=== PATIENT | male | born 1970 | race Caucasian/White ===

== ENCOUNTER 2020-10-25 14:19 | Emergency (ER) | payer OTHER, SELFPAY ==
[2020-10-25] VITALS (11 sets, daily range): BP systolic 151–176; BP diastolic 95–114; PULSE 95–120; RESP 16–20; TEMP 36.3–37.6; O2SAT 96–163; BMI 27.6
--- NOTE | 2020-10-25 14:32 | CT_ITS ---
INDICATION: abdominal pain EXAMINATION: CT Abdomen And Pelvis W/ Contrast Injection TECHNIQUE: Helically acquired images were obtained of the abdomen and pelvis after IV contrast. A radiation dose optimization technique was used for this scan. IV Contrast dosage and agent: 300 cc ISOVUE 300 Oral contrast: None. COMPARISON: None. FINDINGS: Visualized lung bases: Unremarkable Liver: The liver is markedly heterogeneous. There is a nodular contour. There is an enhancing 1.2 cm mass in segment 1 of the liver (image 30, series 2) and another enhancing 1.2 cm mass in the dome of the liver (image 19, series 2). Gallbladder: Unremarkable Spleen: The spleen is enlarged measuring 15.4 cm in craniocaudal dimension. Pancreas: Unremarkable Adrenal Glands: Unremarkable Kidneys: Multiple bilateral nonobstructing renal calculi, largest on the right measuring 6 mm in the inferior pole, while the largest in the left measures 5 mm in the inferior pole. GI Tract: The appendix is normal. Vasculature: Mild scattered aortoiliac atherosclerotic calcifications. Gastroesophageal varices. Lymphadenopathy: None Peritoneum: Large volume ascites. Bladder: Unremarkable Reproductive organs: Prostatic calcifications. Bones/Soft tissues: No suspicious osseous or soft tissue lesions CT/Abdomen/Pelvis W IV Cont ONLY IMPRESSION: Cirrhotic liver with evidence of portal hypertension including gastroesophageal varices, splenomegaly and large volume ascites. There are two 1.2 cm enhancing liver masses as described above. These are concerning for possible hepatocellular carcinoma. Recommend multiphase CT or MR abdomen liver mass protocol for further evaluation. Electronically Signed: Joaquin Gregory MD at 16:41 EDT Tel , Service support ,
--- NOTE | 2020-10-25 14:35 | ED.DCSUM_ITS ---
- ER Visit Summary Date of Service: 10/25/20 Chief Complaint: [Abdominal pain] History of Present Illness: The patient is a 49 M [presents to the emergency department complaint of abdominal pain that started 3 weeks ago on the right side and he has had left-sided abdominal pain for about 6 months. Patient was seen by primary care today and referred to the ER. Patient noticed a discoloration to his skin 2 weeks ago. Patient has history of hepatitis C he believes but he is not sure. He has been able to eat and drink. He denies any nausea or vomiting. Denies any fever. He denies any blood in the stool or black tarry stools. He denies urinary symptoms. Patient has history of alcohol abuse and continues to drink from time to time.] Physical Examination: HEENT-PERRLA, EOMI. Cranial nerves II through XII grossly intact. TMs clear. Mucous membranes moist. No adenopathy. Patient has scleral icterus. Cardiovascular-regular rate and rhythm without murmur or ectopy Lungs-clear to auscultation, chest wall stable without crepitus or subcu emphysema Abdomen-normoactive bowel sounds. Patient's abdomen is distended and protuberant. Minimal abdominal discomfort on exam. There is no rebound, rigidity, or peritoneal signs. Extremities-intact ?4, normal range of motion, normal pulses, atraumatic [. Patient does have jaundice noted to his skin diffusely.] Test Results: [CBC with differential showed a white count 6.8, hemoglobin 13, hematocrit 39, plates 122. Chemistries unremarkable. BUN was 6 and creatinine 1.11. LFTs showed a total bilirubin of 20 and a direct bilirubin of 12.6. Alk phos was 159, ALT 36, AST 169. Urinalysis unremarkable. Lactate was elevated 3.0. GGT was 327. CT scan of the abdomen and pelvis with IV contrast showed cirrhotic liver with evidence of portal hypertension including gastroesophageal varices splenomegaly and large volume ascites. There are two 1.2 cm enhancing liver masses that are concerning for possible hepatocellular carcinoma. Gallbladder ultrasound obtained showed no evidence of gallstones and no evidence of cholecystitis. Patient's gallbladder wall measured 5.8 mm and was thought to be due to a contracted gallbladder and the fact the patient had cirrhosis. Patient's common bile duct was 2.8 mm.] Emergency Department Course and Treatment: [IV line established on arrival. Case was discussed with hospitalist who recommended transfer to tertiary care center. I discussed case with [facility] physician Dr. Flynn who accepted transfer of patient to their facility.] Treatment Plan: [Transfer to [facility] for definitive care] Disposition: [Transfer] Impression: [Liver cirrhosis Hyperbilirubinemia Ascites Alcohol abuse Liver masses-suspicious for hepatocellular carcinoma] This note was generated with [employer] dictation software. It may contain incorrect words, spelling, and punctuation that were not noted in review of the chart prior to signing ED Disposition - Plan for ED Patient: Referrals: Willy Colunga DO [COURTESY STAFF PHYSICIAN] -
[2020-10-25] MEDS: 0.9% Normal Saline 1,000 ML 125 ML IV ×2 (14:51→23:52)
[2020-10-25 14:57] LABS: Absolute Lymphocyte Count 0.77 X10^3/uL (0.83-4.51); Absolute Neutrophil Count 4.9 X10^3/uL (2.0-7.7); Basophil# 0.08 X10^3/uL; Basophil% 1.2 % (0-1); Eosinophil# 0.09 X10^3/uL; Eosinophils% 1.3 % (0-5); Hematocrit 38.8 % (40-54); Hemoglobin 13.3 g/dL (13.0-16.5); Lymphocyte # 0.77 X10^3/ul (4.0); Lymphocyte % 11.3 % (19-41); Mean Corp Hgb Conc 34.3 g/dL (32-36); Mean Corpuscular Hgb 38.7 pg (27.0-32.0); Mean Corpuscular Volume 112.8 fL (80-94); Mean Platelet Vol. 10.6 fl (6.2-12.0); Monocyte# 0.93 X10^3/uL; Monocyte% 13.6 % (0-10); NRBC Flagged by Analyzer 0 % (0-5); Neutrophil # 4.93 X10^3/uL (2.7-7.7); Neutrophil % 72.2 % (47-70); Platelet Count 122 K/mm3 (150-450); RBC Distribution Width CV 15.7 % (11.6-14.6); RBC Distribution Width SD 64.5 fl (35.1-43.9); Red Blood Count 3.44 M/mm3 (4.6-6.2); White Blood Count 6.8 K/mm3 (4.4-11.0)
[2020-10-25 15:23] LABS: ALB/GLOB Ratio 0.4 RATIO (0.9-2.4); AST(SGOT) 169 U/L (15-37); Alanine Aminotransfer ALT/SGPT 36 U/L (16-61); Albumin, Serum 2.2 g/dL (3.2-5.0); Alkaline Phosphatase 159 U/L (45-117); Anion Gap 10 (5-15); BUN 6 mg/dL (7-18); BUN/Creat Ratio 5.4 RATIO (10-20); Calcium,Total 8.3 mg/dL (8.5-10.1); Chloride 100 mmol/L (98-107); Creatinine, Serum 1.11 mg/dL (0.70-1.30); EST Glomerular Filtration Rate 75 mL/min (>60); Est Glom Filt Rate - Afr Amer 91 mL/min (>60); Estimated Creatinine Clearance 91.98 ml/min; Globulin 5.4 g/dL (2.2-4.2); Glucose 186 mg/dL (74-106); Lipase 436 U/L (73-393); Potassium 3.6 mmol/L (3.5-5.1); Protein, Total 7.6 g/dL (6.4-8.2); Sodium Level 134 mmol/L (136-145)
[2020-10-25 15:24] LABS: Lactic Acid 3.2 mmol/L (0.4-1.9)
--- NOTE | 2020-10-25 15:59 | US_ITS ---
STUDY: ABDOMINAL ULTRASOUND - RIGHT UPPER QUADRANT REASON FOR VISIT: Male, 49 years old. Abdominal pain. TECHNIQUE: Ultrasound evaluation of the right upper quadrant was performed with real-time and static figueredo-scale imaging. TECHNICAL QUALITY: Examination limited due to a combination of factors including patient condition and bowel gas. COMPARISON: CT of the abdomen and pelvis, 10/25/2020. FINDINGS: Liver: The liver measures 17.5 cm. The renal parenchyma is heterogenous and increased in echogenicity. There is markedly nodular surface pattern with prominent left lateral lobe suggesting cirrhosis. The bile ducts are within normal limits. There is hepatic color flow. The direction of portal flow is hepatopetal. There is no demonstrated mass lesion. Gallbladder: The gallbladder is contracted. (The patient is nothing by mouth for only 3 hours). The gallbladder wall measures 5.8 mm. There is a negative sonographic Pantoja''s sign. There is no pericholecystic fluid. There are no gallstones. Common Bile Duct (C.B.D.): The common bile duct measures 2.8 mm. Pancreas: There is nonvisualization of the pancreas. Right Kidney: Normal size of the right kidney. The right kidney measures 11.9 cm. Normal renal cortex. The right cortex measures 1.6 cm. There is no demonstrated renal mass or cyst. There are multiple echogenic foci consistent with small renal calculi noted on the CT. There is no right hydronephrosis. There is diffuse ascites. US/Gallbladder IMPRESSION: 1. Contracted thick-walled gallbladder. There is no stones or secondary evidence of acute cholecystitis. This is thought to be due to the patient being nothing by mouth as well as the presence of cirrhosis and ascites. 2. Cirrhotic appearing liver without focal mass. 3. Ascites. 4. Nonvisualization of the pancreas. 5. Normal right kidney. Electronically Signed: Fabrice Florez DO at 17:14 EDT Tel [phone], Service support ,
[2020-10-25 16:27] LABS: Bilirubin, Direct 12.64 mg/dL (0.00-0.30); GGTP 327 U/L (15-85)
[2020-10-25 17:00] LABS: Mucous, Urine 0 SEEN /hpf (<or=2+)
[2020-10-25 17:03] LABS: Color, Urine Amber (Yellow); Glucose, Dipstick Normal (Normal); Ketone-Dipstick Negative (Negative); Leukocyte Esterase-Dipstick 100 /ul (Negative); Nitrite-Dipstick Negative (Negative); Occult Blood-Urine 150 /ul (Negative); Protein-Dipstick 15 mg/dl (Negative); Urine Bilirubin Dipstick 6 mg/dL (Negative); Urine Clarity Sl. Cloudy (Clear); Urine Urobilinogen 12 mg/dl (Normal); Urine pH 6.5 (5.0 - 8.0)
[2020-10-25 17:09] LABS: Bacteria RARE /hpf (None Seen); Red Blood Cells-Urine 0-5 SEEN /hpf (0-5); Squamous Epithelial Cells - UA 0-5 SEEN /hpf (0-5); White Blood Cells 0-5 SEEN /hpf (0-5)
--- NOTE | 2020-10-25 17:10 | ED.RN ---
called [facility] about tgransferring pt and faxed facesheet
[2020-10-25 17:35] LABS: International Normalized Ratio 1.5; Prothrombin Time (Protime)PT. 17.2 SECONDS (11.7-14.9)
[2020-10-25 18:51] LABS: Reflex Lactate? Y
--- NOTE | 2020-10-25 18:53 | ED.RN ---
attempted to call covid result to [facility], my call was sent to the wrong person, waiting for a call back
--- NOTE | 2020-10-25 19:03 | ED.RN ---
called again, spoke to karoline in the transfer center and relayed the covid test result. she advised we are waiting on discharges from their facility brfore a bed assignment can be given
[2020-10-25] MEDS: Morphine 4 MG/ML Syringe IV (20:16)
--- NOTE | 2020-10-25 22:17 | ED.RN ---
CALLED TO CHECK THE STATUS OF A BED ASSIGNMENT, SPOKE TO BRADEN IN THE TRANSFER CENTER WHO STATED A BED HAS NOT BEEN ASSIGNED AT THIS TIME BY BED CONTROL, PT IS ACCEPTED HOWEVER A CLEANED ROOM IS STILL PENDING
[2020-10-25] MEDS: traMADol 50 MG Tablet PO (23:50)
[2020-10-26 00:17] VITALS: BP 121/48; PULSE 107; O2SAT 97
[2020-10-26 01:00] VITALS: BP 173/103; PULSE 108; RESP 17; TEMP 37.1; O2SAT 97
--- NOTE | 2020-10-26 01:37 | ED.RN ---
CALLED TO CHECK THE STATUS OF A ROOM ASSIGNMENT,PER BRADEN IN THE TRANSFER CENTER, NO BED AT THIS TIME
[2020-10-26 02:00] VITALS: BP 155/104; PULSE 107; RESP 18; TEMP 37.1; O2SAT 96
[2020-10-26 04:43] VITALS: BP 160/109; PULSE 106; O2SAT 94
--- NOTE | 2020-10-26 05:03 | ED.RN ---
CALLED TO CHECK THE STATUS OF A ROOM ASSIGNMENT, NONE AT THIS TIME, THEY ARE WAITING ON DISCHARGES SOMETIME TODAY.
[2020-10-26] MEDS: HYDROmorphone 0.5 MG/0.5 ML SYRINGE IV (06:03)
[2020-10-26 06:18] VITALS: BP 170/100; PULSE 105; RESP 16; O2SAT 98
--- NOTE | 2020-10-26 06:44 | NURSING ---
ACCEPTED AT [facility]
--- NOTE | 2020-10-26 06:53 | NURSING ---
[place] [id number] [address] 5632 NURSE TO NURSE [phone] KRUSE
--- NOTE | 2020-10-26 07:21 | NURSING ---
attempted to call report, RN will call ED when available.
[2020-10-26 07:48] VITALS: BP 170/123; PULSE 109; RESP 18; O2SAT 97
== END 2020-10-26 07:57 | disposition short-term general hospital (02) ==
LOC: ED 16:42
PROVIDERS: Emergency Provider Emergency Medicine; PCP Physician Assistant
DX: K74.60 Unspecified cirrhosis of liver (principal); E80.6 Other disorders of bilirubin metabolism; R18.8 Other ascites; F10.10 Alcohol abuse, uncomplicated; R16.0 Hepatomegaly, not elsewhere classified
CPT/HCPCS: 74177; 76705; 80053; 81001; 82248; 82977; 83605; 83690; 85025; 85610; 85730; 87426; 96361; 96374; 96375; 99285; J7030; Q9967; A4216